=== PATIENT | male | born 1945 | race Caucasian/White ===

== ENCOUNTER → 2017-12-26 16:59 | Outpatient (CLI) | payer MEDICARE, OTHER, SELFPAY ==
--- NOTE | 2017-12-26 17:04 | CT_ITS ---
STUDY: CT MAXILLOFACIAL SINUSES REASON FOR EXAM: Male, 72 years old. PAIN BEHIND EYES, PAIN ACROSS BOTH CHEEKS, FACIAL PAIN, HAD RT CHEEK MELANOMA REMOVED TOM PROTOCOL RADIATION DOSAGE (If Supplied By Facility): CTDIvol = ( 33.06 ) mGy, DLP = ( 866.91 ) mGycm TECHNIQUE: The patient was scanned in a multi detector CT scanner. High resolution axial imaging was performed without the administration of intravenous contrast material. Sagittal and coronal images were reconstructed. Individualized dose optimization techniques were used for this CT. COMPARISON: None. FINDINGS: FRONTAL SINUSES: Normal aeration, without mucosal inflammatory disease. ETHMOIDAL SINUSES: Normal aeration, without mucosal inflammatory disease. MAXILLARY SINUSES: Normal aeration, without mucosal inflammatory disease. SPHENOIDAL SINUSES: Normal aeration, without mucosal inflammatory disease. There is patency of the bilateral maxillary infundibuli with normal uncinate processes, ethmoid bullae, and hiatus semilunaris. Normal bilateral middle turbinates. Normal bilateral inferior turbinates. Normal midline nasal septum. There is patency of the bilateral nasal airways. The visualized osseous structures are normal. The visualized bilateral orbital contents are normal. CT/Sinus/Facial Bone IMPRESSION: Normal CT examination of the maxillofacial sinuses. Electronically Signed: Miles Douglas MD at 23:31 EST , Service support ,
== END ==
PROVIDERS: Family Provider Internal Medicine; PCP Internal Medicine; Visit Provider Otolaryngology
DX: R51 Headache (principal)
CPT/HCPCS: 70486

== ENCOUNTER 2018-03-23 05:58 | Day surgery (SDC) | payer MEDICARE, OTHER, SELFPAY ==
[2018-03-15 14:00] VITALS: BP 157/89; PULSE 72; RESP 16; TEMP 36.2; O2SAT 98; BMI 27.9
[2018-03-23] VITALS (12 sets, daily range): BP systolic 98–138; BP diastolic 51–105; PULSE 52–91; RESP 16–18; TEMP 35.7–36.5; O2SAT 92–100; BMI 27.9; BMI 27.8
--- NOTE | 2018-03-23 06:11 | EKG12_ITS ---
Test Reason : PRE-OP Blood Pressure : / mmHG Vent. Rate : 067 BPM Atrial Rate : 067 BPM P-R Int : 228 ms QRS Dur : 092 ms QT Int : 404 ms P-R-T Axes : -08 025 011 degrees QTc Int : 426 ms Sinus rhythm with 1st degree A-V block Otherwise normal ECG When compared with ECG of 23-MAR-2009 07:53, MANUAL COMPARISON REQUIRED, DATA IS UNCONFIRMED Confirmed by JAZMINE VELAZCO ([id number]), newspaper editor managing JAYDE CANADA ([id number]) on 03/27/2018 4:14:11 PM Referred By: Ritchie Isidro Confirmed By:JAZMINE VELAZCO
[2018-03-23] MEDS: Cefazolin 2 GM in 0.9% Normal Saline 100 ML IV (07:00)
--- NOTE | 2018-03-23 07:30 | PROS_PTH ---
PATIENT: SHLOMO MARIA LOC: [facility] U#:[id number] AGE/SX: 72/M ROOM: RE03/23/[address]: Dr. Ritchie Isidro MD : 1945 BED: DIS: 03/24/2018 SPEC #: [id number] RECD: 03/23/18 09:50 STATUS: ABHISHEK RERussell #: [id number] KIMBERLY: 03/23/18 07:[address]: Ritchie Isidro DEPT: SURGICAL PATHOLOGY RECD BY: Truong Caraballo ENTERED: 03/23/18 10:38 SP TYPE: TURP OTHR DR: Dr. Teri Vargas DO Tissues: Prostate, NOS Procedures: Surgery Specimen Level IV HEADER OPERATION: Cysto, TUR prostate, Olympus PRE-OP DIAGNOSIS: BPH with obstruction, frequency of urination, urinary hesitation, nocturia TISSUE SUBMITTED: Prostate tissue MICROSCOPIC DIAGNOSIS Prostate tissue, TUR: Benign prostatic hyperplasia, glandular and stromal type. Focal chronic inflammation. KYLE:arslan 03/26/18 MICROSCOPIC DESCRIPTION Slides are reviewed. GROSS DESCRIPTION Received is one container labeled with the patient's name and designated prostate tissue. The specimen consists of multiple irregular fragments of pink-rodríguez, rubbery, soft tissue that in aggregate weigh 4.6 gm and measure in aggregate 4.5 x 4.5 x 0.3 cm. The entire specimen is submitted in seven cassettes. / AM:arslan 03/23/18 TC:5 [facility]: [id number]
--- NOTE | 2018-03-23 08:15 | OP.PCM_ITS ---
Report of Operation Date of Procedure: 03/23/18 Pre-Operative Diagnosis: BPH with obstructive urinary symptoms Post-Operative Diagnosis: Same Surgery/Procedure Performed:: Transurethral resection of the prostate Description of Surgical Findings:: 72-year-old male taken back to the operating room after smooth induction of general anesthesia he is placed supine on the table penis and testicles were prepped and draped in usual sterile fashion went into the urethra with a 26 [place] continuous flow resectoscope. The entire length the urethra some scar tissue in the mid part of the urethra was able to get through this some annular rings and then sphincter was normal, prostate was short in length high riding median lobe. I then switched over to the resectoscope resected the median lobe resected the right lobe of the prostate carefully resected the apical and anterior tissue pulled back into the sphincter Ellik out all the chips switched over to the noncontinuous flow 24 [place] angled finished the resection of the apical tissue and then removed all the chips obtained good hemostasis but a 22 [place] three-way catheter into the bladder on continuous bladder irrigation patient's anesthetic was reversed is taken back to PACU in good condition. Type of Anesthesia:: General Drains: 22FR 3 WAY - Admit VTE Documentation VTE Present on Admission: No VTE Mechan Device Prophylaxis: SCD's VTE Pharm Prophylaxis ordered?: No Reason prophylaxis not ordered:: Treatment Not Indicated
[2018-03-23] MEDS: 0.9% Normal Saline 1,000 ML 75 ML IV (11:10)
[2018-03-23] MEDS: Pantoprazole Sodium 40 MG Tablet PO (11:11)
[2018-03-23] MEDS: Ibuprofen 600 MG Tablet PO (11:11)
[2018-03-23] MEDS: Docusate Sodium 100 MG Capsule PO ×2 (11:11→21:27)
[2018-03-23] MEDS: Ciprofloxacin 500 MG Tablet PO ×2 (11:23→21:27)
[2018-03-23] MEDS: Acetaminophen 325 MG Tablet PO ×2 (14:47→21:30)
[2018-03-24] MEDS: 0.9% Normal Saline 1,000 ML 75 ML IV (00:30)
[2018-03-24 02:00] VITALS: BP 117/59; PULSE 60; RESP 18; TEMP 37.1; O2SAT 95; BMI 27.9
[2018-03-24] MEDS: Acetaminophen 325 MG Tablet PO (06:02)
[2018-03-24] MEDS: Multivitamins,Therapeutic Tablet 1 TABLET PO (07:46)
--- NOTE | 2018-03-24 09:27 | PCM.DC.URO ---
Discharge Diet: Light diet - advance as tolerated Discharge Activity: May Drive, May Shower Lifting Restrictions: no heavy lifting. Call your doctor if your incision/area has: Sudden Increased Bleeding Call your doctor if you observe: Fever of 101 or Higher, Inability to urinate, Uncontrolled pain Suture Line Care: Avoid Pulling/Pushing, Avoid Pinching/Bending Instructions: Transurethral Resection of the Prostate (TURP): Home Recovery Allergies/Adverse Reactions: Allergies Penicillins Allergy (Verified 03/15/18 13:23) Unknown Medications to take at Discharge Amlodipine Besylate [Norvasc] 5 mg PO DAILY 03/15/18 Amphetamine Salts 20 mg PO TID 03/15/18 Aspirin [Aspirin EC] 81 mg PO DAILY 03/15/18 Cholecalciferol (Vitamin D3) [Vitamin D3] 1,000 unit PO DAILY 03/15/18 Multivitamin [Multiple Vitamins] 1 each PO DAILY 03/15/18 Ramipril [Altace] 10 mg PO DAILY 03/15/18 Ciprofloxacin [Cipro] 500 mg PO BID #14 tab 03/24/18 The following prescriptions were given: Ciprofloxacin [Cipro] 500 mg PO BID #14 tab Primary Care Physician: Teri Vargas DO [Primary Care Provider] - Please Follow Up With: Ritchie Isidro MD When: call for a follow up appt.
[2018-03-24 09:35] VITALS: BP 167/73; PULSE 69; RESP 18; TEMP 36.6; O2SAT 96
[2018-03-24] MEDS: Pantoprazole Sodium 40 MG Tablet PO (09:57)
[2018-03-24] MEDS: amLODIPine 5 MG Tablet PO (09:57)
[2018-03-24] MEDS: Docusate Sodium 100 MG Capsule PO (09:57)
[2018-03-24] MEDS: Ramipril 10 MG Capsule PO (09:57)
[2018-03-24] MEDS: Ciprofloxacin 500 MG Tablet PO (09:57)
[2018-03-24 11:33] VITALS: BP 132/72; PULSE 78; RESP 16; TEMP 36.7; O2SAT 96
== END 2018-03-24 11:30 | disposition home or self-care (01) ==
LOC: SDC 05:58 → AC 05:59 → MS3 08:33
PROVIDERS: Family Provider Internal Medicine; PCP Internal Medicine; Visit Provider Urology
PROC: (CPT 52601; principal; 2018-03-23 07:20)
DX: N40.1 Benign prostatic hyperplasia with lower urinary tract symptoms (principal); N13.8 Other obstructive and reflux uropathy; R35.0 Frequency of micturition; R39.11 Hesitancy of micturition; R35.1 Nocturia; I10 Essential (primary) hypertension; Z85.828 Personal history of other malignant neoplasm of skin; Z87.442 Personal history of urinary calculi; Z87.891 Personal history of nicotine dependence; Z79.82 Long term (current) use of aspirin; Z79.899 Other long term (current) drug therapy
CPT/HCPCS: 52601; 88305; 93005; J7030; J7120; J2405

== ENCOUNTER → 2018-08-22 06:58 | Outpatient (CLI) | payer MEDICARE, OTHER, SELFPAY ==
[2018-08-22 07:05] LABS: Bacteria 0 SEEN /hpf (None Seen); Mucous, Urine 0 SEEN /hpf (<or=2+); Red Blood Cells-Urine 0 SEEN /hpf (0-5); Squamous Epithelial Cells - UA 0 SEEN /hpf (0-5)
[2018-08-22 10:27] LABS: Absolute Lymphocyte Count 2.41 X10^3/ul (0.83-4.51); Absolute Neutrophil Count 3.1 X10^3/uL (2.0-7.7); Basophil# 0.07 X10^3/uL; Basophil% 1.1 % (0-1); Eosinophil# 0.22 X10^3/uL; Eosinophils% 3.4 % (0-5); Hematocrit 47.9 % (40-54); Hemoglobin 15.9 g/dl (13.0-16.5); Lymphocyte # 2.41 X10^3/ul (4.0); Lymphocyte % 37.7 % (19-41); Mean Corp Hgb Conc 33.2 g/gl (32-36); Mean Corpuscular Hgb 31.7 pg (27.0-32.0); Mean Corpuscular Volume 95.6 fL (80-94); Mean Platelet Vol. 9.7 fl (6.2-12.0); Monocyte# 0.58 X10^3/uL; Monocyte% 9.1 % (0-10); Neutrophil % 48.4 % (47-70); Platelet Count 261 K/mm3 (150-450); RBC Distribution Width CV 13.2 % (11.6-14.6); RBC Distribution Width SD 46.3 fl (35.1-43.9); Red Blood Count 5.01 M/mm3 (4.6-6.2); White Blood Count 6.4 K/mm3 (4.4-11.0)
[2018-08-22 10:28] LABS: POSITIVE COUNT NO; POSITIVE DIFFERENTIAL NO; POSITIVE MORPHOLOGY NO
[2018-08-22 10:29] LABS: Color, Urine Yellow (Yellow); Glucose, Dipstick Normal (Normal); Ketone-Dipstick Negative (Negative); Leukocyte Esterase-Dipstick 500 /ul (Negative); Nitrite-Dipstick Negative (Negative); Occult Blood-Urine Negative /ul (Negative); Protein-Dipstick Negative (Negative); Urine Bilirubin Dipstick Negative (Negative); Urine Clarity Sl. Cloudy (Clear); Urine Urobilinogen Normal (Normal)
[2018-08-22 10:41] LABS: Microalbumin,Random Urine 5.8 mg/L (NO RANGE EST.); Microalbumin:Creatinine Ratio 16.3 mg/g CRE (<30 mg/g CRE); White Blood Cells 25-50 SEEN /hpf (0-5)
[2018-08-22 10:45] LABS: Vitamin D,25 Hydroxy 36.8 ng/mL (29.95-100.01)
[2018-08-22 10:46] LABS: ALB/GLOB Ratio 1.1 RATIO (0.9-2.4); AST(SGOT) 23 U/L (15-37); Alanine Aminotransfer ALT/SGPT 44 U/L (16-61); Albumin, Serum 3.6 g/dL (3.2-5.0); Alkaline Phosphatase 102 U/L (45-117); Anion Gap 7 (5-15); BUN 17 mg/dL (7-18); BUN/Creat Ratio 15.2 RATIO (10-20); Calcium,Total 8.8 mg/dL (8.5-10.1); Chloride 103 mmol/L (98-107); Creatinine, Serum 1.12 mg/dL (0.70-1.30); EST Glomerular Filtration Rate 68 mL/min (>60); Est Glom Filt Rate - Afr Amer 83 mL/min (>60); Globulin 3.4 g/dL (2.2-4.2); Glucose 87 mg/dL (74-106); Potassium 3.8 mmol/L (3.5-5.1); Sodium Level 140 mmol/L (136-145); Thyroid Stim Hormone (TSH) 1.54 uIU/mL (0.358-3.74)
[2018-08-24 12:08] LABS: CHOLESTEROL TOTAL 181 mg/dL (100-199); HDL-C 41 mg/dL (>39); HDL-P TOTAL 34.1 umol/L (>=30.5); SMALL LDL-P 858 nmol/L (<=527); TRIGLYCERIDES 193 mg/dL (0-149)
[2018-08-24 18:40] LABS: LDL SIZE 20.4 nm (>20.5); LDL-C 101 mg/dL (0-99); LDL-P 1493 nmol/L (<1000); LP-IR SCORE ** 80 (<=45)
== END ==
PROVIDERS: Family Provider Internal Medicine; PCP Internal Medicine; Referring Provider Internal Medicine; Visit Provider Internal Medicine
DX: E55.9 Vitamin D deficiency, unspecified (principal); E78.00 Pure hypercholesterolemia, unspecified; I10 Essential (primary) hypertension
CPT/HCPCS: 36415; 80053; 80061; 81001; 82043; 82306; 82570; 83704; 84443; 85025

== ENCOUNTER → 2019-01-07 16:07 | Outpatient (CLI) | payer MEDICARE, OTHER, SELFPAY ==
[2018-03-23 10:40] VITALS: BMI 27.8
--- NOTE | 2019-01-07 16:17 | VDLE_ITS ---
Reason For Study: pain RIGHT LEFT CFV is compressible, spontaneous, phasic, GSV is normal. competent and demonstrates normal CFV is compressible, spontaneous, phasic, augmentation. competent, and demonstrates normal Procedure augmentation. Exam performed in department. FV is compressible, spontaneous, phasic, The exam was diagnostic. competent and demonstrates normal A preliminary report was called and/or faxed augmentation. to Dr. Vargas. POP V is compressible, spontaneous, phasic, competent and demonstrates normal augmentation. T/P Trunk is compressible. PTV is compressible. LT PerV is compressible. Interpretation Summary Deep veins of the left lower extremity are patent and compressible segmentally. There is no evidence of left lower extremity deep vein thrombosis. Valvular competence appears intact within the proximal deep venous system on the left . The left greater saphenous vein appears patent and compressible segmentally. Ordering Physician: Teri Vargas Performed By: Breezy Yanez RVT
== END ==
PROVIDERS: Family Provider Internal Medicine; PCP Internal Medicine; Referring Provider Internal Medicine; Visit Provider Internal Medicine
DX: M79.662 Pain in left lower leg (principal)
CPT/HCPCS: 93971

== ENCOUNTER → 2019-01-09 12:59 | Outpatient (CLI) | payer MEDICARE, OTHER, SELFPAY ==
--- NOTE | 2019-01-09 13:04 | CDU_ITS ---
Reason For Study: Bilateral artery occlusion Rt. Velocities/BP Lt. Velocities/BP Prox CCA 112/20.4 cm/sec. Prox CCA 145/32.4 cm/sec. Mid CCA 121/24.4 cm/sec. Mid CCA 137/29.5 cm/sec. Dist CCA 99/17.3 cm/sec. Dist CCA 123/29.5 cm/sec. Prox ICA 76.8/21.7 cm/sec. Prox ICA 62.1/15.8 cm/sec. Mid ICA 99/32.2 cm/sec. Mid ICA 80.4/25.5 cm/sec. Dist ICA 87.4/26.9 cm/sec. Dist ICA 65.1/22.3 cm/sec. Rt. ICA/CCA = 0.88. Lt. ICA/CCA = .59. Prox ECA 103/16.5 cm/sec. Prox ECA 95.1/19.6 cm/sec. Rt. Vert. 41.2/10.6 cm/sec. Lt. Vert. 55.8/15.3 cm/sec. Right Extracranial There is intimal thickening but no significant atherosclerotic plaque noted in the right common carotid artery. There is heterogeneous, smooth atherosclerotic plaque noted in the right internal carotid artery. There is no significant atherosclerotic plaque noted in the right external carotid artery. Antegrade flow is noted in the right vertebral artery. Left Extracranial There is intimal thickening but no significant atherosclerotic plaque noted in the left common carotid artery. There is intimal thickening but no significant atherosclerotic plaque noted in the left internal carotid artery. There is no significant atherosclerotic plaque noted in the left external carotid artery. Antegrade flow is noted in the left vertebral artery. Procedure Carotid Duplex 11079. Exam performed in department. Interpretation Summary Mild (<50%) stenosis right extracranial internal carotid. No significant atherosclerotic plaque or stenosis noted in the left internal carotid artery. Flow within the vertebral arteries is antegrade bilaterally. Ordering Physician: Teri Vargas Referring Physician: Teri Vargas Performed By: Clarice Lockhart RVT and Student
== END ==
PROVIDERS: Family Provider Internal Medicine; PCP Internal Medicine; Referring Provider Internal Medicine; Visit Provider Internal Medicine
DX: I65.23 Occlusion and stenosis of bilateral carotid arteries (principal)
CPT/HCPCS: 93880

== ENCOUNTER → 2019-02-27 08:03 | Outpatient (CLI) | payer MEDICARE, OTHER, SELFPAY ==
--- NOTE | 2019-02-27 08:05 | US_ITS ---
STUDY: ABDOMINAL ULTRASOUND - RIGHT UPPER QUADRANT REASON FOR VISIT: Male, 73 years old. Epigastric pain and nausea TECHNIQUE: Ultrasound evaluation of the right upper quadrant was performed with real-time and static rivera-scale imaging. TECHNICAL QUALITY: Adequate. COMPARISON: None. FINDINGS: Liver: The liver measures 15.9 cm. There is normal echogenicity of the liver. The bile ducts are within normal limits. There is hepatic color flow. The direction of portal flow is hepatopetal. There is a 1.6 cm hyperechoic lesion in the right hepatic lobe without posterior acoustic shadowing. Gallbladder: Normal distended gallbladder. The gallbladder wall measures 2.9 mm. There is a negative sonographic Palomino's sign. There is a 4 mm polyp along the parenchymal wall. There is no pericholecystic fluid. There are no gallstones. Common Bile Duct (C.B.D.): The common bile duct measures 4.9 mm. Pancreas: Normal size of the head, body and tail of the pancreas. There is mild increased echogenicity of the pancreatic parenchyma. There is no demonstrated pancreatic mass or cyst. Right Kidney: Normal size of the right kidney. The right kidney measures 9.9 x 5.6 x 5.7 cm. Normal renal cortex. The right cortex measures 1.6 cm. There is no demonstrated renal mass or cyst. There is no right hydronephrosis. US/Abdomen Limited IMPRESSION: 1. 1.6 cm right hepatic lobe hemangioma. 2. 4 mm gallbladder polyp along the parenchymal wall. Follow-up imaging in 6 months is recommended to document stability. 3. Mild hyperechogenicity of the pancreatic parenchyma which may represent a mild pancreatitis . Electronically Signed: Solo Hou MD at 4:55 EDT Tel , Service support ,
== END ==
PROVIDERS: Family Provider Internal Medicine; PCP Internal Medicine; Referring Provider Internal Medicine; Visit Provider Internal Medicine
DX: R11.0 Nausea (principal)
CPT/HCPCS: 76705

== ENCOUNTER → 2019-03-07 | Outpatient (CLI) | payer MEDICARE, OTHER, SELFPAY ==
--- NOTE | 2019-03-07 13:01 | CT_ITS ---
STUDY: CT ABDOMEN WITH CONTRAST REASON FOR EXAM: Male, 73 years old. Hepatic hemangioma RADIATION DOSAGE (If Supplied By Facility): CTDIvol = ( 12.36 ) mGy, DLP = ( 1159.54 ) mGycm TECHNIQUE: Transaxial images were obtained post I.V. administration of 100 IV Isovue 300, and oral contrast. Sagittal and coronal images were reconstructed. Individualized dose optimization techniques were used for this CT. COMPARISON: Ultrasound 02/27/2019 FINDINGS: The visualized lung bases are unremarkable. The visualized portions of the heart are within normal limits. No hepatic hemangioma is identified by CT. Normal gallbladder and extrahepatic biliary system. Normal spleen. Normal pancreas. Normal bilateral adrenal glands. Normal right kidney. Normal left kidney. Normal visualized stomach. Normal small intestine. Normal colon. The appendix is visualized and appears normal. Normal abdominal aorta. Normal inferior vena cava. Normal retroperitoneum. Normal abdominal wall. Normal osseous structures. CT/Abdomen WITH IV Contrast IMPRESSION: No hepatic hemangioma is identified by CT. Electronically Signed: Antoine Lopez MD at 9:06 EDT Tel , Service support ,
== END | disposition home or self-care (01) ==
LOC: CT 12:59
PROVIDERS: Family Provider Internal Medicine; PCP Internal Medicine; Referring Provider Internal Medicine; Visit Provider Internal Medicine
DX: D18.03 Hemangioma of intra-abdominal structures (principal)
CPT/HCPCS: 74160; Q9967

== ENCOUNTER → 2020-03-19 14:07 | Outpatient (CLI) | payer MEDICARE, OTHER, SELFPAY ==
[2018-03-23 10:40] VITALS: BMI 27.8
== END ==
PROVIDERS: PCP Internal Medicine; Referring Provider Urology; Visit Provider Urology
DX: Z12.5 Encounter for screening for malignant neoplasm of prostate (principal)
CPT/HCPCS: 36415; 84153; G0103

== ENCOUNTER → 2020-12-07 10:33 | Outpatient (CLI) | payer MEDICARE, OTHER, SELFPAY ==
[2020-09-01 09:39] VITALS: BMI 27.8
[2020-12-07 11:25] LABS: PSA,Total- Diagnostic 5.53 ng/mL (0.0-4.0)
== END ==
PROVIDERS: PCP Internal Medicine; Referring Provider Urology; Visit Provider Urology
DX: R97.20 Elevated prostate specific antigen [PSA] (principal)
CPT/HCPCS: 36415; 84153

== ENCOUNTER → 2020-12-30 16:52 | Outpatient (CLI) | payer MEDICARE, OTHER, SELFPAY ==
[2020-09-01 09:39] VITALS: BMI 27.8
[2020-12-30 17:46] LABS: Absolute Lymphocyte Count 2.59 X10^3/uL (0.83-4.51); Absolute Neutrophil Count 3.8 X10^3/uL (2.0-7.7); Basophil# 0.08 X10^3/uL; Basophil% 1.1 % (0-1); Eosinophil# 0.11 X10^3/uL; Eosinophils% 1.5 % (0-5); Hematocrit 50.4 % (40-54); Hemoglobin 17.1 g/dL (13.0-16.5); Lymphocyte # 2.59 X10^3/ul (4.0); Lymphocyte % 35.2 % (19-41); Mean Corp Hgb Conc 33.9 g/dL (32-36); Mean Corpuscular Hgb 32.3 pg (27.0-32.0); Mean Corpuscular Volume 95.3 fL (80-94); Mean Platelet Vol. 9.4 fl (6.2-12.0); Monocyte% 10.9 % (0-10); NRBC Flagged by Analyzer 0 % (0-5); Neutrophil # 3.75 X10^3/uL (2.7-7.7); Platelet Count 288 K/mm3 (150-450); RBC Distribution Width CV 12.6 % (11.6-14.6); RBC Distribution Width SD 44.3 fl (35.1-43.9); Red Blood Count 5.29 M/mm3 (4.6-6.2); White Blood Count 7.4 K/mm3 (4.4-11.0)
[2020-12-30 18:28] LABS: ALB/GLOB Ratio 1.1 RATIO (0.9-2.4); AST(SGOT) 25 U/L (15-37); Alanine Aminotransfer ALT/SGPT 37 U/L (16-61); Albumin, Serum 3.7 g/dL (3.2-5.0); Alkaline Phosphatase 122 U/L (45-117); Anion Gap 6 (5-15); BUN 17 mg/dL (7-18); Chloride 106 mmol/L (98-107); Creatinine, Serum 1.21 mg/dL (0.70-1.30); EST Glomerular Filtration Rate 62 mL/min (>60); Est Glom Filt Rate - Afr Amer 75 mL/min (>60); Globulin 3.4 g/dL (2.2-4.2); Glucose 91 mg/dL (74-106); Potassium 3.9 mmol/L (3.5-5.1); Protein, Total 7.1 g/dL (6.4-8.2); Sodium Level 141 mmol/L (136-145)
== END ==
PROVIDERS: PCP Internal Medicine; Referring Provider Internal Medicine; Visit Provider Internal Medicine
DX: I10 Essential (primary) hypertension (principal)
CPT/HCPCS: 36415; 80053; 85025

== ENCOUNTER → 2020-12-31 | Outpatient (CLI) | payer MEDICARE, OTHER, SELFPAY ==
[2020-09-01 09:39] VITALS: BMI 27.8
--- NOTE | 2020-12-31 | PROSBIL_PTH ---
PATIENT: SHLOMO MARIA LOC: [facility] U#:[id number] AGE/SX: 75/M ROOM: RE12/31/[address]: Dr. Ritchie Isidro MD : 1945 BED: DIS: 12/31/2020 SPEC #: [id number] RECD: 12/31/20 12:44 STATUS: ABHISHEK REQ #: [id number] KIMBERLY: 12/31/20 00:[address]: Ritchie Isidro DEPT: SURGICAL PATHOLOGY RECD BY: Solo River ENTERED: 12/31/20 12:45 SP TYPE: PROST BX CODY DR: Dr. Teri Vargas DO Tissues: A - PROSTATE RIGHT B - PROSTATE RIGHT C - PROSTATE RIGHT D - PROSTATE LEFT E - PROSTATE LEFT F - PROSTATE LEFT Procedures: PROSTATE BX HEADER OPERATION: Prostate biopsy PRE-OP DIAGNOSIS: Elevated PSA TISSUE SUBMITTED: A - Right apex, B - Right mid, C - Right base, D - Left apex, E - Left mid, F - Left base MICROSCOPIC DIAGNOSIS A. Right prostate, apex, core biopsy: Prostatic tissue, negative for malignancy. Mild chronic inflammation. B. Right prostate, mid, core biopsy: Prostatic tissue, negative for malignancy. C. Right prostate, base, core biopsy: Prostatic tissue, negative for malignancy. D. Left prostate, apex, core biopsy: Prostatic tissue, negative for malignancy. Mild chronic inflammation. E. Left prostate, mid, core biopsy: Prostatic adenocarcinoma. Tilden grade: 3+3=6 Number of cores involved: 2/2 Proportion of tissue involved: ~75% Perineural invasion: Present. Greatest tumor length: 0.7 cm F. Left prostate, base, core biopsy: Prostatic adenocarcinoma. Tilden grade: 3+3=6 Number of cores involved: 1/1 Proportion of tissue involved: ~80% Perineural invasion: Present. Greatest tumor length: 0.9 cm AM:arslan 01/01/2021 COMMENT Case has been reviewed in consultation with Dr. Martínez who concurs with the above diagnosis. IDC:AM MICROSCOPIC DESCRIPTION Slides are reviewed. GROSS DESCRIPTION A - Received is one container designated prostate, right apex. The specimen consists of one elongated fragment of light rodríguez-white soft tissue measuring 1 cm in length and 0.1 cm in diameter. The specimen is totally submitted in one cassette. B - Received is one container designated prostate, right mid. The specimen consists of two elongated fragments of light rodríguez-white soft tissue each measuring 1 cm in length and 0.1 cm in diameter. The specimen is totally submitted in one cassette. C - Received is one container designated prostate, right base. The specimen consists of one elongated fragment of light rodríguez-white soft tissue measuring 1 cm in length and 0.1 cm in diameter. The specimen is totally submitted in one cassette. D - Received is one container designated prostate, left apex. The specimen consists of one elongated fragment of light rodríguez-white soft tissue measuring 1 cm in length and 0.1 cm in diameter. The specimen is totally submitted in one cassette. E - Received is one container designated prostate, left mid. The specimen consists of two elongated fragments of light rodríguez-white soft tissue each measuring 1 cm in length and 0.1 cm in diameter. The specimen is totally submitted in one cassette. F - Received is one container designated prostate, left base. The specimen consists of one elongated fragment of light rodríguez-white soft tissue measuring 1.5 cm in length and 0.1 cm in diameter. The specimen is totally submitted in one cassette. / AM:arslan 12/31/20 TC:0 CPT: G0146 ADDENDUM ADDENDUM ADDENDUM ADDENDUM ADDENDUM ADDENDUM ADDENDUM ADDENDUM ADDENDUM ADDENDUM ADDENDUM ADDENDUM ADDENDUM ADDENDUM ADDENDUM ADDENDUM ADDENDUM ADDENDUM ADDENDUM ADDENDUM ADDENDUM ADDENDUM ADDENDUM ADDENDUM ADDENDUM ADDENDUM 04/12/2021 10:36 ADDENDUM 04/12/2021 10:36 ADDENDUM 04/12/2021 10:36 ADDENDUM 04/12/2021 10:36 ADDENDUM 04/12/2021 10:36 This addendum is added to incorporate an outside pathology consultation report. The case was examined at [facility] (#[id number]) and the following diagnosis was rendered. A. Right prostate, apex, core biopsy: Benign prostatic tissue. B. Right prostate, mid, core biopsy: Benign prostatic tissue. C. Right prostate, base, core biopsy: Benign prostatic tissue. D. Left prostate, apex, core biopsy: Benign prostatic tissue. E. Left prostate, mid, core biopsy: Prostatic adenocarcinoma, Michel score 3+4=7, Grade Group 2, involving two of two cores (6?mm, 65%, 7 mm, 85%). Tilden pattern 4 comprises approximately 20% of the carcinoma. Small gland cribriform morphology is identified. F. Left prostate, base, core biopsy: Prostatic adenocarcinoma, Tilden score 3+4=7, Grade Group 2, involving one of one core (9?mm, 80%). Tilden pattern 4 comprises approximately 15% of the carcinoma. Small gland cribriform morphology is identified. Please see complete above mentioned consultation report in EMR
== END | disposition home or self-care (01) ==
LOC: LABSPEC 11:26
PROVIDERS: PCP Internal Medicine; Referring Provider Urology; Visit Provider Urology
DX: R97.20 Elevated prostate specific antigen [PSA] (principal)
CPT/HCPCS: 88305; G0416

== ENCOUNTER → 2021-01-06 06:10 | Outpatient (CLI) | payer MEDICARE, OTHER, SELFPAY ==
[2020-09-01 09:39] VITALS: BMI 27.8
--- NOTE | 2021-01-06 06:13 | ECHOCS_ITS ---
Reason For Study: RUFFIN Procedure This was a 2D Doppler, Color Flow transthoracic echocardiogram. Exam performed in department. Left Ventricle Normal LV size. Left ventricular systolic function is normal. The estimated ejection fraction is 65 %. Stage 1 diastolic dysfunction. No regional wall motion abnormalities noted. Right Ventricle Normal RV size. Normal systolic function. Atria Normal left atrium. Normal right atrium. Mitral Valve Normal mitral valve. Tricuspid Valve Normal tricuspid valve. Unable to estimate RV systolic pressure due to insufficient tricuspid regurgitant envelope. Aortic Valve Normal aortic valve. Trisinus/trileaflet aortic valve. Pulmonic Valve Normal pulmonic valve. Great Vessels Normal aortic root. The pulmonary artery is normal size. Normal inferior vena cava. Pericardium/Pleural No pericardial effusion. Medication Diluted definity 3ml given slow IV push to enhance endocardial definition. MMode/2D Measurements & Calculations LVIDd: 4.8 cm IVSd: 1.1 cm Ao root diam: 2.9 cm LVIDs: 2.6 cm LVPWd: 1.0 cm RVDd: 2.9 cm FS: 46.4 % LAV(MOD-bp): 30.4 ml LA A4 area: 15.1 cm2 LA dimension(2D): 4.2 cm LAV(MOD-bp) Indexed: 15.4 ml/m2 LAV(MOD-sp2): 22.5 ml LAV(MOD-sp4): 36.4 ml RA A4 area: 9.6 cm2 Doppler Measurements & Calculations MV E max marcelo: 51.7 cm/sec Lat Peak E' Marcelo: 10.5 cm/sec Med Peak E' Marcelo: 6.5 cm/sec MV A max marcelo: 90.2 cm/sec E/E' lat: 4.9 E/E' med: 7.9 MV E/A: 0.57 Ao V2 max: 127.6 cm/sec LV V1 max: 85.7 cm/sec PA V2 max: 135.8 cm/sec Ao max P.5 mmHg LV V1 max P.9 mmHg Ao V2 mean: 93.0 cm/sec Ao mean P.7 mmHg Ao V2 VTI: 20.4 cm Interpretation Summary Normal LV size. Left ventricular systolic function is normal. The estimated ejection fraction is 65 %. Stage 1 diastolic dysfunction. Contrast injection was performed. Ordering Physician: Teri Vargas Referring Physician: Teri Vargas Performed By: Viviana Shrestha, CARMENZA, RVT
--- NOTE | 2021-01-06 06:13 | CDU_ITS ---
Reason For Study: Carotid artery occlusion Rt. Velocities/BP Lt. Velocities/BP Prox CCA 83.9/10.8 cm/sec. Prox CCA 102.3/18.8 cm/sec. Mid CCA 96.9/17.3 cm/sec. Mid CCA 98.6/16.3 cm/sec. Dist CCA 79.9/12.1 cm/sec. Dist CCA 88.8/15.1 cm/sec. Prox ICA 55.2/12.1 cm/sec. Prox ICA 45.8/7.7 cm/sec. Mid ICA 61.7/12.1 cm/sec. Mid ICA 64.2/16.3 cm/sec. Dist ICA 54.7/12.4 cm/sec. Dist ICA 85.1/20 cm/sec. Rt. ICA/CCA = 0.74. Lt. ICA/CCA = 0.86. Prox ECA 76/9.5 cm/sec. Prox ECA 77.7/11.4 cm/sec. Rt. Vert. 37.8/8.1 cm/sec. Lt. Vert. 37.7/9.1 cm/sec. Right Extracranial There is intimal thickening but no significant atherosclerotic plaque noted in the right common carotid artery. There is heterogeneous, irregular atherosclerotic plaque noted in the right internal carotid artery. There is intimal thickening but no significant atherosclerotic plaque noted in the right external carotid artery. Antegrade flow is noted in the right vertebral artery. Left Extracranial There is intimal thickening but no significant atherosclerotic plaque noted in the left common carotid artery. There is intimal thickening but no significant atherosclerotic plaque noted in the left internal carotid artery. There is intimal thickening but no significant atherosclerotic plaque noted in the left external carotid artery. Antegrade flow is noted in the left vertebral artery. Procedure Carotid Duplex 19978. This is a Carotid Duplex examination using B-mode, color flow and specral Doppler. Exam performed in department. Interpretation Summary Mild (<50%) stenosis right extracranial internal carotid. No significant atherosclerotic plaque or stenosis noted in the left internal carotid artery. Flow within the vertebral arteries is antegrade bilaterally. Ordering Physician: Teri Vargas Referring Physician: Teri Vargas Performed By: Amalia Kent RVT
--- NOTE | 2021-01-06 13:18 | STRESSREP ---
Stress Test Report Exercise myocardial perfusion stress test. 75-year-old man with a history of chest pain. Stress protocol: Resting EKG demonstrates normal sinus rhythm with a rate of 74 bpm normal intervals are noted resting blood pressure is 122/74 mmHg. The patient exercised according to regular Cj protocol for a total duration of 9 minutes and 30 seconds. The maximum heart rate attained was 133 bpm which was 91% of maximum predicted heart rate the maximum workload was 10.9 metabolic equivalents. At rest there were no ST or T wave changes noted to suggest ischemia at peak exercise upsloping ST changes only were noted with no meet the criteria for ischemia. The resting blood pressure was 122/74 with a peak blood pressure 174/62 mmHg. Rate-pressure product was 21,400. Myocardial perfusion protocol. 9.4 mCi of technetium 99m sestamibi was injected at rest. The patient exercised according to regular Cj protocol for total duration of 9 minutes and 30 seconds. At peak exercise 29.9 mCi of technetium 99m sestamibi was injected stress images were obtained stress and rest images were reconstructed and compared in the short axis vertical long horizontal long axis. Gated images were also obtained Perfusion SPECT analysis: Review of the stress images demonstrate normal uptake of tracer noted in all areas of myocardium the resting images similarly demonstrate normal uptake of tracer noted in all areas of the myocardium. No areas of reversibility are noted suggest ischemia no previous infarct is noted. Gated SPECT analysis: The gated ejection fraction is 77%. Conclusion: Normal exercise myocardial perfusion stress test at a high workload. Preserved ejection fraction.
== END ==
PROVIDERS: PCP Internal Medicine; Referring Provider Internal Medicine; Visit Provider Internal Medicine
DX: I65.23 Occlusion and stenosis of bilateral carotid arteries (principal); R06.09 Other forms of dyspnea; R68.89 Other general symptoms and signs
CPT/HCPCS: 78452; 93017; 93306; 93880; A9500; Q9957; A4216; C8929

== ENCOUNTER → 2021-01-12 10:45 | Outpatient (CLI) | payer MEDICARE, OTHER, SELFPAY ==
[2020-09-01 09:39] VITALS: BMI 27.8
[2021-01-12 12:23] LABS: Absolute Lymphocyte Count 2.68 X10^3/uL (0.83-4.51); Basophil# 0.07 X10^3/uL; Basophil% 1.1 % (0-1); Eosinophils% 1.5 % (0-5); Hematocrit 52.7 % (40-54); Hemoglobin 17.6 g/dL (13.0-16.5); Lymphocyte # 2.68 X10^3/ul (4.0); Lymphocyte % 41.2 % (19-41); Mean Corp Hgb Conc 33.4 g/dL (32-36); Mean Corpuscular Hgb 31.2 pg (27.0-32.0); Mean Corpuscular Volume 93.4 fL (80-94); Mean Platelet Vol. 9.6 fl (6.2-12.0); Monocyte# 0.65 X10^3/uL; NRBC Flagged by Analyzer 0 % (0-5); Neutrophil # 2.97 X10^3/uL (2.7-7.7); Neutrophil % 45.7 % (47-70); Platelet Count 308 K/mm3 (150-450); RBC Distribution Width CV 12.2 % (11.6-14.6); RBC Distribution Width SD 42.3 fl (35.1-43.9); Red Blood Count 5.64 M/mm3 (4.6-6.2); White Blood Count 6.5 K/mm3 (4.4-11.0)
[2021-01-12 12:46] LABS: ALB/GLOB Ratio 1.1 RATIO (0.9-2.4); AST(SGOT) 22 U/L (15-37); Alanine Aminotransfer ALT/SGPT 34 U/L (16-61); Albumin, Serum 3.8 g/dL (3.2-5.0); Alkaline Phosphatase 115 U/L (45-117); Anion Gap 2 (5-15); BUN 20 mg/dL (7-18); BUN/Creat Ratio 15.6 RATIO (10-20); Calcium,Total 9.3 mg/dL (8.5-10.1); Chloride 101 mmol/L (98-107); Creatinine, Serum 1.28 mg/dL (0.70-1.30); EST Glomerular Filtration Rate 58 mL/min (>60); Est Glom Filt Rate - Afr Amer 70 mL/min (>60); Globulin 3.4 g/dL (2.2-4.2); Glucose 102 mg/dL (74-106); Potassium 3.4 mmol/L (3.5-5.1); Protein, Total 7.2 g/dL (6.4-8.2); Sodium Level 137 mmol/L (136-145)
== END ==
PROVIDERS: PCP Internal Medicine; Referring Provider Internal Medicine; Visit Provider Internal Medicine
DX: I10 Essential (primary) hypertension (principal)
CPT/HCPCS: 36415; 80053; 85025

== ENCOUNTER → 2021-03-16 15:45 | Outpatient (CLI) | payer MEDICARE, OTHER, SELFPAY ==
[2020-09-01 09:39] VITALS: BMI 27.8
[2021-03-16 18:44] LABS: PSA,Total- Diagnostic 3.87 ng/mL (0.0-4.0)
== END ==
PROVIDERS: PCP Internal Medicine; Referring Provider Urology; Visit Provider Urology
DX: C61 Malignant neoplasm of prostate (principal)
CPT/HCPCS: 36415; 84153

== ENCOUNTER → 2021-09-22 16:16 | Outpatient (CLI) | payer MEDICARE, OTHER, SELFPAY ==
--- NOTE | 2021-09-22 16:17 | MRI_ITS ---
STUDY: MRI LUMBAR SPINE WITHOUT CONTRAST REASON FOR EXAM: Male, 76 years old. pain f/u abnormal xray l4/l5 spondylosthesis TECHNIQUE: Standardized fat and water weighted pulse sequences were obtained in the sagittal and axial planes. COMPARISON: 09/06/2021 x-ray FINDINGS: Normal lumbar lordosis. There is no substantial scoliosis. Normal conus medullaris that terminates at the L1. L1-2: There is minimal disc space narrowing and endplate spondylosis. There is no significant disc herniation, central canal or foraminal stenosis. L2-3: There is minimal disc space narrowing and endplates spondylosis. Mild disc bulge and facet arthropathy without significant central canal stenosis. Mild right and mild left foraminal stenosis. L3-4: There is mild disc space narrowing and endplates spondylosis. Mild disc bulge and mild foraminal arthropathy with mild central canal stenosis. Mild right and mild left foraminal stenosis. L4-5: There is minimal disc space narrowing and endplates spondylosis. Severe facet arthropathy with grade 1 anterolisthesis and disc uncovering with severe central canal stenosis. Mild right and moderate left foraminal stenosis. L5-S1: There is mild disc space narrowing and endplates spondylosis mild disc bulge and moderate facet arthropathy without significant central canal or foraminal stenosis. Normal visualized sacral ala. MRI/Spine Lumbar (Routine) IMPRESSION: L4/L5: Facet arthropathy with grade 1 anterolisthesis and severe central canal stenosis. Moderate left foraminal stenosis. Electronically Signed: Efraín Gasca MD at 15:47 EDT Tel , Service support ,
== END ==
PROVIDERS: PCP Internal Medicine; Visit Provider Orthopaedic Surgery
DX: M43.16 Spondylolisthesis, lumbar region (principal); M48.061 Spinal stenosis, lumbar region without neurogenic claudication
CPT/HCPCS: 72148

== ENCOUNTER 2023-06-05 04:57 | Observation (INO) | payer MEDICARE, OTHER, SELFPAY ==
[2023-06-05] VITALS (11 sets, daily range): BP systolic 119–169; BP diastolic 49–78; PULSE 55–87; RESP 14–18; TEMP 35.8–36.9; O2SAT 93–100; BMI 26.6; BMI 26.2
--- NOTE | 2023-06-05 | GALL_PTH ---
PATIENT: SHLOMO MARIA LOC: U U#:[id number] AGE/SX: 77/M ROOM: [facility] RE06/05/[address]: Dr. Jose Duran MD : 1945 BED: 1 DIS: 06/06/2023 SPEC #: [id number] RECD: 06/05/23 16:27 STATUS: ABHISHEK RAMAN #: [id number] KIMBERLY: 06/05/23 00:[address]: Jose Duran DEPT: SURGICAL PATHOLOGY RECD BY: [place] ENTERED: 06/06/23 08:45 SP TYPE: JOZEF ROSS DR: Dr. Cecile Rhodes MD Tissues: Gallbladder, NOS Procedures: Surgery Specimen Level III HEADER OPERATION: Laparoscopic cholecystectomy with IOC PRE-OP DIAGNOSIS: Acute cholecystitis TISSUE SUBMITTED: Gallbladder MICROSCOPIC DIAGNOSIS Gallbladder, cholecystectomy: Cholesterolosis, chronic cholecystitis and cholelithiasis. AM:am 06/07/23 MICROSCOPIC DESCRIPTION Slides are reviewed. GROSS DESCRIPTION Received is one container labeled with the patient's name and designated gallbladder. The specimen consists of a gallbladder measuring 8.0 cm in length and up to 3.5cm in diameter. The external surface is pink-rodríguez, smooth and glistening for the most part. Focally it is granular, hemorrhagic and contains cautery artifact. The gallbladder contains green, yellow mucoid bile and multiple yellow orange mulberry stones measuring in aggregate 4 x 3 x 1.0 cm and 0.1 to 0.5 cm in greatest dimension. The mucosa is bile-stained and without any mass lesions. Mucosa also show the yellow orange streaks consistent with Cholesterolosis. The gallbladder wall measures up to 0.5 cm in thickness. Focal areas show increased amount of subserosal fat. Ice Maker sections from the gallbladder and the cystic duct are submitted in one cassette. / KYLE:nargis TC:3 CPT: 38738
--- NOTE | 2023-06-05 05:20 | CT_ITS ---
EXAM: CT ABDOMEN AND PELVIS WITH INTRAVENOUS CONTRAST CLINICAL INDICATION: abd pain TECHNIQUE: Helically acquired images were obtained of the abdomen and pelvis with intravenous contrast. This CT exam was performed using one or more of the following dose reduction techniques: automated exposure control, adjustment of the mA and/or kV according to patient size, and/or use of iterative reconstruction technique. CONTRAST: IV 100mL Isovue-370 RADIATION DOSE: Total DLP: 1162.20 mGy-cm. COMPARISON: Abdominal CT of 03/07/2019. FINDINGS: LOWER THORAX: Dependent atelectasis is incidentally noted at the lung bases. Mild coronary artery calcification is present. No significant pericardial effusion. ABDOMEN: LIVER: Unremarkable. Homogeneous. No focal mass. GALLBLADDER AND BILE DUCTS: Gallbladder is now mildly distended measuring 9.2 x 3.9 cm in diameter. No calcified gallstones, wall thickening or pericholecystic stranding. Intrahepatic bile ducts are slightly more prominent on the prior study but the common bile duct remains normal in caliber. No choledocholithiasis is identified. PANCREAS: Pancreas is atrophic. No findings of acute pancreatitis. No focal cystic or solid mass. SPLEEN: Unremarkable. Normal size without focal cystic or solid mass. ADRENALS: Unremarkable. No nodules. KIDNEYS AND URETERS: Normal size kidneys with symmetric nephrograms. Nonspecific perirenal stranding. No hydronephrosis or obstructing ureteral stone. STOMACH AND BOWEL: Stomach is decompressed. Wall of the gastric antrum is mildly thickened, most likely due to the lack of distention with gastritis felt less likely. No periduodenal inflammatory changes or distended small bowel loops. Colon is elongated and redundant. A few uncomplicated diverticula project from the descending colon. No findings of diverticulitis, colitis or small bowel obstruction. PELVIS: APPENDIX: Retrocecal appendix. No findings of acute appendicitis. BLADDER: Unremarkable. REPRODUCTIVE: Absent prostate gland. ABDOMEN and PELVIS: INTRAPERITONEAL SPACE: Unremarkable. No ascites or other fluid collection. No free air. BONES/JOINTS: Pedicle screws and rods in place from L4 to L5, with titanium cage in place within the L4/5 disc space. T10/11 disc space is partially fused. T11/12 disc space shows degenerative disc space narrowing with vacuum disc phenomenon and marginal osteophytes. Lumbar facet arthritis is present. Slight anterolisthesis of L4 on L5. No suspicious lytic or blastic osseous abnormality identified. SOFT TISSUES: Small fat-filled inguinal hernias. VASCULATURE: Calcific abdominal aorta and its branches. No AAA. SMA and NIURKA enhance normally. Abdominal aorta is non-dilated. LYMPH NODES: Unremarkable. No enlarged lymph nodes. CT/Abdomen/Pelvis W IV Cont ONLY IMPRESSION: Mild gallbladder distention. No calcified gallstones or pericholecystic stranding identified. Correlation with ultrasound may be of benefit if biliary pathology is suspected clinically. Mild thickening of the gastric antral wall due to limited distention or possibly due to a mild gastritis/antritis. Normal appendix. Mild colonic diverticulosis without evidence for acute diverticulitis. No renal or ureteral stones. Electronically Signed: Gunnar Ruiz MD at 6:21 EDT ,
--- NOTE | 2023-06-05 05:20 | EKG12_ITS ---
Test Reason : ABD PAIN Blood Pressure : / mmHG Vent. Rate : 055 BPM Atrial Rate : 055 BPM P-R Int : 238 ms QRS Dur : 098 ms QT Int : 456 ms P-R-T Axes : 009 057 045 degrees QTc Int : 436 ms Sinus bradycardia with 1st degree A-V block Otherwise normal ECG Confirmed by GISELA COOK, ANAM ([id number]), medical editor ANTONIO HYATT ([id number]) on 06/06/2023 11:43:21 AM Referred By: Confirmed By:ANAM HIGGINS MD
[2023-06-05 05:30] LABS: Absolute Lymphocyte Count 3.15 X10^3/uL (0.83-4.51); Absolute Neutrophil Count 5.8 X10^3/uL (2.0-7.7); Basophil# 0.08 X10^3/uL; Basophil% 0.8 % (0-1); Eosinophil# 0.37 X10^3/uL; Eosinophils% 3.6 % (0-5); Hematocrit 48.4 % (40-54); Hemoglobin 16.5 g/dL (13.0-16.5); Lymphocyte # 3.15 X10^3/ul (0.83-4.51); Lymphocyte % 30.6 % (19-41); Mean Corp Hgb Conc 34.1 g/dL (32-36); Mean Corpuscular Volume 93.8 fL (80-94); Mean Platelet Vol. 9.4 fl (6.2-12.0); Monocyte# 0.88 X10^3/uL; Monocyte% 8.6 % (0-10); NRBC Flagged by Analyzer 0 % (0-5); Neutrophil # 5.76 X10^3/uL (2.7-7.7); Platelet Count 271 K/mm3 (150-450); RBC Distribution Width CV 12.7 % (11.6-14.6); Red Blood Count 5.16 M/mm3 (4.6-6.2); White Blood Count 10.3 K/mm3 (4.4-11.0)
[2023-06-05] MEDS: Ondansetron 4 MG/2 ML Vial IV (05:33)
[2023-06-05] MEDS: 0.9% Normal Saline 1,000 ML 999 ML IV (05:33)
[2023-06-05] MEDS: Morphine 4 MG/ML Syringe IV ×2 (05:33→09:26)
[2023-06-05 05:50] LABS: AST(SGOT) 26 U/L (15-37); Alanine Aminotransfer ALT/SGPT 34 U/L (16-61); Albumin, Serum 3.7 g/dL (3.2-5.0); Alkaline Phosphatase 101 U/L (45-117); Anion Gap 3 (5-15); BUN 23 mg/dL (7-18); BUN/Creat Ratio 19.2 RATIO (10-20); Bilirubin, Direct 0.17 mg/dL (0.00-0.30); Chloride 107 mmol/L (98-107); EST Glomerular Filtration Rate 62 mL/min (>60); Est Glom Filt Rate - Afr Amer 75 mL/min (>60); Estimated Creatinine Clearance 51.55 ml/min; Globulin 3.6 g/dL (2.2-4.2); Glucose 110 mg/dL (74-106); Lipase 56 U/L (13-75); Potassium 3.7 mmol/L (3.5-5.1); Protein, Total 7.3 g/dL (6.4-8.2); Sodium Level 139 mmol/L (136-145); Troponin-I HS 8 pg/mL (3.0-78.0)
--- NOTE | 2023-06-05 06:33 | US_ITS ---
EXAM: US ABDOMEN LIMITED, RIGHT UPPER QUADRANT CLINICAL INDICATION: abd pain TECHNIQUE: Real-time ultrasound of the right upper quadrant with image documentation. COMPARISON: No relevant prior studies available. FINDINGS: LIVER: Normal. There is normal echotexture. No focal hepatic lesion. No intrahepatic biliary ductal dilation. GALLBLADDER: Gravel like stones as well as sludge noted within the gallbladder. No gallbladder wall thickening is demonstrated. No pericholecystic fluid. Negative sonographic Palomino''s sign. COMMON BILE DUCT: Unremarkable as visualized. The proximal common bile duct is normal size. PANCREAS: Unremarkable as visualized. No focal abnormality is demonstrated in the pancreas. No pancreatic ductal dilatation. RIGHT KIDNEY: Normal. There is no hydronephrosis. No shadowing calculus. No focal lesion or perinephric collection is demonstrated. US/Gallbladder IMPRESSION: Cholelithiasis. Electronically Signed: Howie Sahni MD at 8:14 EDT ,
--- NOTE | 2023-06-05 07:26 | EX.ED.DYSGE1 ---
HPI History of Present Illness Chief Complaint: Abd Pain Informant: patient and spouse/S.O. Narrative Narrative: Patient is a 77-year-old male with past medical history of hypertension GERD and spinal stenosis. Patient states he awoke around 1 in the morning with pain in the mid to upper abdomen with sense of mild nausea. He states he tried to make himself throw up but was unsuccessful and there is no improvement of the pain either. He states that there is been no loose stool diarrhea or constipation he denies any dysuria and he denies any recent trauma fevers or chills. He states however the pain has been persistent and secondary to this comes in for evaluation [facility] Medical History Atypical nevus HTN (hypertension) Hx of melanoma of skin Prostate cancer Renal calculi Home Medications amlodipine 5 mg tablet 5 mg PO DAILY 03/15/18 [History Last Taken 06/04/23] amphetamine 1.25 mg/mL oral 24 hr extended-release suspension 3.1 mg PO QAM 08/23/20 [History Last Taken Unknown] ramipril 10 mg capsule 10 mg PO DAILY 09/01/20 [History Last Taken Unknown] omeprazole 20 mg capsule,delayed release 40 mg PO DAILY 09/06/21 [History Last Taken 06/05/23] polyethylene glycol 3350 17 gram/dose oral powder (Miralax) 17 g PO DAILY 09/06/21 [History Last Taken Unknown] tadalafil 5 mg tablet ea PO 09/06/21 [History Last Taken 06/04/23] hydrocodone-acetaminophen 5-325mg 5mg-325mg 1 tab PO Q6H PRN PRN Pain 3 days #12 TABLETS 06/05/23 [Rx Last Taken Unknown] ondansetron 4 mg disintegrating tablet 4 mg PO TID PRN nausea and vomiting #21 tabs 06/05/23 [Rx Last Taken Unknown] Allergy/AdvReac Type Severity Reaction Status Date / Time Penicillins Allergy Itching Verified 06/05/23 05:03 Surgical History (Updated 09/06/21 @ 11:17 by Breonna Diane) H/O prostatectomy S/P TURP Social History (Updated 09/01/20 @ 11:[address] Ted Mancini DO) Smoking Status: Former smoker ROS ROS ED Constitutional Constitutional ED: Denies chills or fever(s) ENT ENT ED: Denies sore throat Cardiovascular Cardiovascular: Denies chest pain Respiratory/Chest Respiratory/Chest: Denies cough or dyspnea Gastrointestinal Gastrointestinal: Reports abdominal pain and nausea; Denies diarrhea or vomiting Genitourinary Genitourinary ED: Denies dysuria or hematuria Musculoskeletal Musculoskeletal: Denies myalgias Integumentary Denies rash Neurologic Neurologic: Denies headache(s) Hematologic/Lymphatic Hematologic/Lymphatic: Denies easy bleeding or easy bruising EXAM Physical Exam Const Vital Signs: 06/05/23 04:58 06/05/23 05:01 Temperature 96.5 F L 96.5 F L Temperature Source Oral Oral Pulse Rate 55 L 57 L Respiratory Rate 16 16 Blood Pressure 169/77 H 169/77 H Blood Pressure Mean 107 107 Pulse Ox 97 98 Oxygen Delivery Method Room Air Positive well nourished and well developed General Appearance ED: well developed HEENT Reports moist mucous membranes Eyes PERRL and EOMs intact bilaterally General Eye ED: Negative for scleral icterus Neck supple Resp normal respiratory effort and clear to auscultation bilaterally Cardio regular rate and regular rhythm Rate: other Other Details: Radial pulses are plus 2 out of 4 bilaterally are equal and symmetric. Carotid pulses are equal and symmetric as well GI non-distended GI Narrative: Abdomen is soft and nondistended with normal active bowel sounds. Patient has pain with palpation in the right upper quadrant with positive Palomino sign. No pulsatile mass. No rigidity noted Auscultation: normoactive bowel sounds Palpation: soft Back/Spine no CVA tenderness Extremity normal to inspection Neuro oriented x3, CN's II-XII intact bilaterally and no sensory deficits noted Sensorium / Orientation: alert Motor Exam: strength 5/5 throughout Psych mental status grossly normal Skin no rashes or lesions noted General Skin Exam: Negative for jaundice MDM MDM MDM Narrative Medical decision making narrative: Patient presented to the ER hypertensive otherwise with stable vitals. Pain was present in the right upper quadrant with positive Palomino sign concerning for biliary colic versus cholangitis. Differential diagnosis also includes pancreatitis or potential acute coronary syndrome. Secondary to this basic blood work was obtained with CT scan. Labs revealed no clinically significant findings but CAT scan did question biliary distention and recommended correlation with ultrasound. Ultrasound showed gallstones without obvious acute cholecystitis based on the patient's sudden onset of symptoms and abnormal ultrasound General surgery was consulted. General surgery evaluated the patient and wish to admit him at this time to perform a cholecystectomy. This plan of care was discussed with the patient he is agreeable to History & Record Review Discussion w/independent historian: Patient and Significant other Lab Data Attestation: I reviewed the patient's lab results. Labs: Laboratory Results - last 24 hr 06/05/23 06/05/23 05:04 05:30 WBC 10.3 RBC 5.16 Hgb 16.5 Hct 48.4 MCV 93.8 MCH 32.0 MCHC 34.1 RDW Std Deviation 44.0 H RDW Coeff of Cass 12.7 Plt Count 271 MPV 9.4 Immature Gran % (Auto) 0.400 Neut % (Auto) 56.0 Lymph % (Auto) 30.6 Cobb % (Auto) 8.6 Eos % (Auto) 3.6 Baso % (Auto) 0.8 Absolute Neuts (auto) 5.8 Absolute Lymphs (auto) 3.15 Nucleated RBC % 0 Sodium 139 Potassium 3.7 Chloride 107 Carbon Dioxide 29.0 Anion Gap 3 L BUN 23 H Creatinine 1.20 Estim Creat Clear Calc 51.55 Est GFR (MDRD) Af Amer 75 Est GFR (MDRD) Non-Af 62 BUN/Creatinine Ratio 19.2 Glucose 110 H Lactic Acid 1.0 Calcium 9.0 Total Bilirubin 0.40 Direct Bilirubin 0.17 AST 26 ALT 34 Alkaline Phosphatase 101 Troponin I High Sens 8 Total Protein 7.3 Albumin 3.7 Globulin 3.6 Lipase 56 Radiography Diagnostic Testing: Clinical Impression(s) from Imaging Studies Abdomen/Pelvis CT 06/05/23 05:20 IMPRESSION: Mild gallbladder distention. No calcified gallstones or pericholecystic stranding identified. Correlation with ultrasound may be of benefit if biliary pathology is suspected clinically. Mild thickening of the gastric antral wall due to limited distention or possibly due to a mild gastritis/antritis. Normal appendix. Mild colonic diverticulosis without evidence for acute diverticulitis. No renal or ureteral stones. Electronically Signed: Gunnar Ruiz MD at 6:21 EDT , Gallbladder Ultrasound 06/05/23 06:33 IMPRESSION: Cholelithiasis. Electronically Signed: Howie Sahni MD at 8:14 EDT , Discharge Plan Triage Chief Complaint: Abd Pain ED Provider: Tai Garibay Dx/Rx/DC Orders Clinical Impression: Cholelithiasis, Biliary colic, Hypertension Instructions: Gallstones Dc, ED Gallstones with Biliary Colic Prescriptions: New hydrocodone-acetaminophen 5-325 mg tablet 1 tab PO Q6H PRN PRN (Reason: Pain) 3 Days Qty: 12 0RF ondansetron 4 mg tablet,disintegrating 4 mg PO TID PRN (Reason: nausea and vomiting) Qty: 21 0RF No Action amphetamine 1.25 mg/mL suspen, IR - ER, biphasic 24hr 3.1 mg PO QAM ramipril 10 mg capsule 10 mg PO DAILY polyethylene glycol 3350 [Miralax] 17 gram/dose powder 17 g PO DAILY omeprazole 20 mg capsule,delayed release(DR/EC) 40 mg PO DAILY Patient Comments: TAKE 1 CAPSULE BY MOUTH ONCE DAILY 30 MINUTES BEFORE BREAKFAST tadalafil 5 mg tablet PO Patient Comments: TAKE 1 TABLET BY MOUTH DAILY amlodipine 5 MG tablet 5 mg PO DAILY Primary Care Provider: Cecile Rhodes Referrals: Jose Duran MD [Med Staff - Active Staff] - Cecile Rhodes MD [Primary Care Provider] - Disposition Disposition: Acute Care Hospital [facility]
--- NOTE | 2023-06-05 09:11 | PCM.HP.STD ---
HPI - General HPI Narrative SHLOMO MARIA, is a 77 M who presents with upper abdominal pain. The patient reports that he woke up in the middle the night feeling like he needed to vomit to feel better but he did not. He describes the pain is epigastric and some in the right upper quadrant. He denies any nausea at this time. He denies fevers or chills. [facility] Medical History Atypical nevus HTN (hypertension) Hx of melanoma of skin Prostate cancer Renal calculi Home Medications amlodipine 5 mg tablet 5 mg PO DAILY 03/15/18 [History Last Taken 06/04/23] amphetamine 1.25 mg/mL oral 24 hr extended-release suspension 3.1 mg PO QAM 08/23/20 [History Last Taken Unknown] ramipril 10 mg capsule 10 mg PO DAILY 09/01/20 [History Last Taken Unknown] omeprazole 20 mg capsule,delayed release 40 mg PO DAILY 09/06/21 [History Last Taken 06/05/23] polyethylene glycol 3350 17 gram/dose oral powder (Miralax) 17 g PO DAILY 09/06/21 [History Last Taken Unknown] tadalafil 5 mg tablet ea PO 09/06/21 [History Last Taken 06/04/23] hydrocodone-acetaminophen 5-325mg 5mg-325mg 1 tab PO Q6H PRN PRN Pain 3 days #12 TABLETS 06/05/23 [Rx Last Taken Unknown] ondansetron 4 mg disintegrating tablet 4 mg PO TID PRN nausea and vomiting #21 tabs 06/05/23 [Rx Last Taken Unknown] Allergy/AdvReac Type Severity Reaction Status Date / Time Penicillins Allergy Itching Verified 06/05/23 05:03 Surgical History (Updated 09/06/21 @ 11:17 by Breonna Diane) H/O prostatectomy S/P TURP Social History (Updated 09/01/20 @ 11:[address] Ted Mancini DO) Smoking Status: Former smoker ROS Constitutional Constitutional: Denies anorexia, chills or fatigue Eyes Eyes: Denies blurry vision ENT HEENT: Denies abnormal hearing Cardiovascular Cardiovascular: Denies chest pain Respiratory/Chest Respiratory/Chest: Denies cough or dyspnea Gastrointestinal Gastrointestinal: Reports abdominal pain; Denies coffee ground emesis, nausea or vomiting Genitourinary Genitourinary: Denies change in urinary stream or difficulty urinating Musculoskeletal Musculoskeletal: Denies abnormal gait or back pain Integumentary Integumentary: Denies jaundice Neurologic Neurologic: Denies abnormal gait Psychiatric Psychiatric: Denies anxiety Vital Signs Vital Signs Vital Signs: 06/05/23 04:58 06/05/23 05:01 06/05/23 08:51 Temperature 96.5 F L 96.5 F L 98 F Temperature Source Oral Oral Temporal Pulse Rate 55 L 57 L 59 L Respiratory Rate 16 16 14 Blood Pressure 169/77 H 169/77 H 150/72 H Blood Pressure Mean 107 107 98 Pulse Ox 97 98 100 Oxygen Delivery Method Room Air Room Air 06/05/23 08:51 Temperature Temperature Source Pulse Rate 59 L Respiratory Rate 14 Blood Pressure 150/72 H Blood Pressure Mean 98 Pulse Ox 100 Oxygen Delivery Method Room Air Weight Weight: 180 lb 8 oz Body Mass Index (BMI) 26.6 Physical Exam Const oriented x3 Resp normal respiratory effort GI soft to palpation Palpation: tender RUQ Extremity normal to inspection Results Lab / Micro Data 06/05/23 05:04 06/05/23 05:04 Labs: Laboratory Results - last 24 hr 06/05/23 05:04: WBC 10.3, RBC 5.16, Hgb 16.5, Hct 48.4, MCV 93.8, MCH 32.0, MCHC 34.1, RDW Std Deviation 44.0 H, RDW Coeff of Cass 12.7, Plt Count 271, MPV 9.4, Immature Gran % (Auto) 0.400, Neut % (Auto) 56.0, Lymph % (Auto) 30.6, Johnston % (Auto) 8.6, Eos % (Auto) 3.6, Baso % (Auto) 0.8, Absolute Neuts (auto) 5.8, Absolute Lymphs (auto) 3.15, Nucleated RBC % 0, Sodium 139, Potassium 3.7, Chloride 107, Carbon Dioxide 29.0, Anion Gap 3 L, BUN 23 H, Creatinine 1.20, Estim Creat Clear Calc 51.55, Est GFR (MDRD) Af Amer 75, Est GFR (MDRD) Non-Af 62, BUN/Creatinine Ratio 19.2, Glucose 110 H, Calcium 9.0, Total Bilirubin 0.40, Direct Bilirubin 0.17, AST 26, ALT 34, Alkaline Phosphatase 101, Troponin I High Sens 8, Total Protein 7.3, Albumin 3.7, Globulin 3.6, Lipase 56 06/05/23 05:30: Lactic Acid 1.0 Radiology Impression Abdomen/Pelvis CT 06/05/23 05:20 IMPRESSION: Mild gallbladder distention. No calcified gallstones or pericholecystic stranding identified. Correlation with ultrasound may be of benefit if biliary pathology is suspected clinically. Mild thickening of the gastric antral wall due to limited distention or possibly due to a mild gastritis/antritis. Normal appendix. Mild colonic diverticulosis without evidence for acute diverticulitis. No renal or ureteral stones. Electronically Signed: Gunnar Ruiz MD at 6:21 EDT , Gallbladder Ultrasound 06/05/23 06:33 IMPRESSION: Cholelithiasis. Electronically Signed: Howie Sahni MD at 8:14 EDT , Assessment & Plan Assessment/Plan (1) Acute cholecystitis: PLAN: The patient presents with epigastric and right upper quadrant pain which started suddenly in the middle the night. ultrasound did reveal several gravel-like stones and sludge in the gallbladder. Patient reports that his pain did improve with the pain medication. He denies fevers or chills. I recommended laparoscopic cholecystectomy to the patient. I discussed the procedure in detail with the patient. I discussed the risks, benefits, and alternatives of the procedure. I discussed the risks including but not limited to bleeding, infection, injury to surrounding organs such as the liver, bile duct, bowels. I did discuss the possibility of having to convert to an open procedure as well as the possibility that if any injuries occurred this may necessitate further surgery at a tertiary care center. Jose Duran MD Pager: [facility] [address] [place] [address], [address] [place] [address] Office:
[2023-06-05] MEDS: metroNIDAZOLE 500 MG/100 ML BAG 100 MG IV (11:19)
[2023-06-05] MEDS: 0.9% Normal Saline 1,000 ML 100 ML IV (11:19)
[2023-06-05] MEDS: Ciprofloxacin 400 MG/200 ML BAG 200 MG IV (11:19)
--- NOTE | 2023-06-05 14:19 | RAD_ITS ---
STUDY: INTRAOPERATIVE CHOLANGIOGRAM. REASON FOR EXAM: Male, 77 years old. lap fausto with IOC FLUOROSCOPY TIME (if supplied): ( 29 seconds ) minutes/seconds. 9.53 mGy TECHNIQUE: An intraoperative cholangiogram was performed by the surgeon. Imaging was submitted. COMPARISON: None. FINDINGS: The intra and extrahepatic biliary ducts are unremarkable. There is free flow of contrast into the duodenum. RAD/Cholangiogram/ O R,Initial IMPRESSION: Unremarkable intraoperative cholangiogram. Electronically Signed: Quintin Ramirez MD at 15:50 EDT ,
[2023-06-05] MEDS: Bupivacaine 0.25% 30 ML Vial (14:45)
--- NOTE | 2023-06-05 14:53 | PCM.OPRPT ---
Report of Operation Date of Procedure: 06/05/23 Pre-Operative Diagnosis: Acute cholecystitis Post-Operative Diagnosis: Acute cholecystitis Surgery/Procedure Performed:: Laparoscopic cholecystectomy with cholangiogram Description of Surgical Findings:: Inflamed gallbladder. Stone in the cystic duct. Type of Anesthesia: General/Regional Specimen's removed: Gallbladder Estimated Blood Loss (mL): 20 Description of Procedure: After obtaining informed consent patient was brought back to the operating room. General anesthesia was induced. The abdomen was prepped and draped in usual sterile fashion. A small midline incision was made superior to the umbilicus and deepened to the level of fascia. The fascia was elevated and incised. Next the peritoneum was elevated and incised in the same fashion. Finger sweep was performed and the Mendez trocar was placed into the abdomen. The balloon was inflated. The abdomen was inflated to 15 mmHg. Next a camera was introduced into the abdomen and the abdomen was inspected. Next under direct visualization three 5-mm ports were placed one subxiphoid and 2 subcostal. Next the gallbladder was elevated and retracted toward the right shoulder. The peritoneum was stripped from the gallbladder. The infundibulum was located and retracted laterally. Next the triangle of Calot was dissected and the cystic duct and cystic artery were identified. Cholangiograms were performed. The Warren clamp was used to clamp across the infundibulum and the catheter needle was inserted into the gallbladder. Under fluoroscopy contrast was instilled into the gallbladder and the common duct, cystic duct as well as proximal hepatic ducts were identified. There was good filling of the duodenum. There were no filling defects noted in the common bile duct. The clamp was removed as well as the needle and the infundibulum was grasped once more. Three hemolock clips were placed across the cystic duct. The cystic duct was then divided leaving 2 clips on the stump. The cystic artery was clipped and divided in the same fashion. The hook cautery was then used to take the gallbladder off of the gallbladder bed. Hemostasis was obtained. Gallbladder fossa was irrigated and no active bleeding or bile leakage was noted. Next the camera was introduced in the subxiphoid port. An Endopouch bag was placed through the umbilical port and the gallbladder was placed into it. The gallbladder was then removed through the umbilical incision. The camera was then reinserted through the umbilical port. The gallbladder fossa was inspected once more and noted to be hemostatic with no leaking bile. The abdomen was suctioned dry. The 5 mm ports were removed under direct visualization. The umbilical port was then removed and the air was removed from the abdomen. Next using an 0 Vicryl suture the umbilical fascia was closed in a [id number] fashion. The umbilical port site was irrigated local anesthetic was administered to all the incisions. All the incisions were closed with interrupted subcuticular 4-0 Monocryl sutures followed by Steri-Strips and dressings. The patient was awoken and taken to PACU in stable condition. Admit VTE Documentation VTE Mechan Device Prophylaxis: SCD's
[2023-06-05] MEDS: oxyCODONE 5 MG Tablet PO (18:10)
[2023-06-05] MEDS: 0.9% Normal Saline 1,000 ML 60 ML IV (21:52)
[2023-06-06] MEDS: 0.9% Normal Saline 1,000 ML 60 ML IV (03:42)
[2023-06-06 03:43] VITALS: BP 129/56; PULSE 60; RESP 18; TEMP 36.8; O2SAT 95
[2023-06-06 06:45] LABS: Absolute Lymphocyte Count 1.61 X10^3/uL (0.83-4.51); Basophil# 0.02 X10^3/uL; Basophil% 0.2 % (0-1); Hematocrit 42.6 % (40-54); Hemoglobin 14.3 g/dL (13.0-16.5); Lymphocyte # 1.61 X10^3/ul (0.83-4.51); Lymphocyte % 13.9 % (19-41); Mean Corp Hgb Conc 33.6 g/dL (32-36); Mean Corpuscular Hgb 31.9 pg (27.0-32.0); Mean Corpuscular Volume 95.1 fL (80-94); Mean Platelet Vol. 9.5 fl (6.2-12.0); Monocyte# 0.89 X10^3/uL; Monocyte% 7.7 % (0-10); NRBC Flagged by Analyzer 0 % (0-5); Neutrophil # 8.99 X10^3/uL (2.7-7.7); Neutrophil % 77.6 % (47-70); Platelet Count 243 K/mm3 (150-450); RBC Distribution Width CV 12.8 % (11.6-14.6); Red Blood Count 4.48 M/mm3 (4.6-6.2); White Blood Count 11.6 K/mm3 (4.4-11.0)
[2023-06-06 07:18] LABS: Anion Gap 5 (5-15); BUN 13 mg/dL (7-18); BUN/Creat Ratio 13.6 RATIO (10-20); Chloride 109 mmol/L (98-107); Creatinine, Serum 0.95 mg/dL (0.70-1.30); EST Glomerular Filtration Rate 81 mL/min (>60); Est Glom Filt Rate - Afr Amer 98 mL/min (>60); Estimated Creatinine Clearance 65.12 ml/min; Glucose 131 mg/dL (74-106); Potassium 4.1 mmol/L (3.5-5.1); Sodium Level 137 mmol/L (136-145)
--- NOTE | 2023-06-06 08:12 | PCM.DC.SUM ---
Providers Date of Admission: 06/05/23 Primary Care Physician: Dr. Cecile Rhodes MD Reason For Visit: ACUTE CHOLECYSTITIS Diagnosis Discharge Diagnosis (1) Acute cholecystitis: Status: Acute Code(s): K81.0 - Acute cholecystitis Plan: The patient presents with epigastric and right upper quadrant pain which started suddenly in the middle the night. ultrasound did reveal several gravel-like stones and sludge in the gallbladder. Patient reports that his pain did improve with the pain medication. He denies fevers or chills. I recommended laparoscopic cholecystectomy to the patient. I discussed the procedure in detail with the patient. I discussed the risks, benefits, and alternatives of the procedure. I discussed the risks including but not limited to bleeding, infection, injury to surrounding organs such as the liver, bile duct, bowels. I did discuss the possibility of having to convert to an open procedure as well as the possibility that if any injuries occurred this may necessitate further surgery at a tertiary care center. Jose Duran MD Pager: [facility] [address] [place] [address], [address] [place] [address] Office: Medications at Discharge Home Medications amlodipine 5 mg tablet 5 mg PO DAILY 03/15/18 amphetamine 1.25 mg/mL oral 24 hr extended-release suspension 3.1 mg PO QAM 08/23/20 ramipril 10 mg capsule 10 mg PO DAILY 09/01/20 omeprazole 20 mg capsule,delayed release 40 mg PO DAILY 09/06/21 polyethylene glycol 3350 17 gram/dose oral powder (Miralax) 17 g PO DAILY 09/06/21 tadalafil 5 mg tablet ea PO 09/06/21 hydrocodone-acetaminophen 5-325mg 5mg-325mg 1 tab PO Q6H PRN PRN Pain 3 days #12 TABLETS 06/05/23 ondansetron 4 mg disintegrating tablet 4 mg PO TID PRN nausea and vomiting #21 tabs 06/05/23 acetaminophen 325 mg tablet 650 mg (2 x 325 mg) PO Q4H PRN PRN Pain 1-10 Or Fever #0 tabs 06/06/23 Hospital Course Operations cholecystecomy Summary of Care Provided Hospital Course: Patient was admitted with acute cholecystitis. The later that afternoon he was taken for laparoscopic cholecystectomy. He tolerated the procedure well. The following morning he was tolerating a diet and his pain was well controlled and he was discharged home. Physical Exam Const oriented x3 Resp normal respiratory effort Cardio regular rate and regular rhythm GI soft to palpation and non-tender Weight / BMI Weight Weight: 178 lb Body Mass Index (BMI) 26.2 ABG / Lab / Microbiology Data 06/06/23 06:20 06/06/23 06:20 Laboratory: Laboratory Results - last 24 hr 06/06/23 06:20: WBC 11.6 H, RBC 4.48 L, Hgb 14.3, Hct 42.6, MCV 95.1 H, MCH 31.9, MCHC 33.6, RDW Std Deviation 45.0 H, RDW Coeff of Cass 12.8, Plt Count 243, MPV 9.5, Immature Gran % (Auto) 0.600, Neut % (Auto) 77.6 H, Lymph % (Auto) 13.9 L, Hall % (Auto) 7.7, Eos % (Auto) 0.0, Baso % (Auto) 0.2, Absolute Neuts (auto) 9.0 H, Absolute Lymphs (auto) 1.61, Nucleated RBC % 0, Sodium 137, Potassium 4.1, Chloride 109 H, Carbon Dioxide 23.0, Anion Gap 5, BUN 13, Creatinine 0.95, Estim Creat Clear Calc 65.12, Est GFR (MDRD) Af Amer 98, Est GFR (MDRD) Non-Af 81, BUN/Creatinine Ratio 13.6, Glucose 131 H, Calcium 8.0 L Radiography Diagnostic Testing: Radiology Impression Gallbladder Ultrasound 06/05/23 06:33 IMPRESSION: Cholelithiasis. Electronically Signed: Howie Sahni MD at 8:14 EDT , Cholangiogram 06/05/23 14:19 IMPRESSION: Unremarkable intraoperative cholangiogram. Electronically Signed: Quintin Ramirez MD at 15:50 EDT , D/C Instructions Discharge Diet: Light diet - advance as tolerated Discharge Activity: May Not Drive (for 2-3 days or while taking narcotic pain medications.), May Shower and - (Do not drive, work heavy equipment or sign legal documents for 24 hours.) Lifting Restrictions: 20 lbs for 2 weeks Additional Activity Instructions: Pain medication may cause nausea. You should typically eat light foods as you take your pain medications. Pain medication may also cause constipation. If this is a problem for you, please discuss with your doctor. Call your doctor if your incision/area has: Continuous Slow Oozing, Sudden Increased Bleeding, Increased Pain/ Swelling, Increased Redness and Foul Smelling Discharge Call your doctor if you observe: Fever of 101 or Higher Suture Line Care: Avoid Pulling/Pushing and Avoid Pinching/Bending Remove Dressing in: 2 days Additional Dressing/Incision Instructions: Leave operative bandaids on for 2 days. When you remove dressing, leave Steri-Strips on until your follow-up appointment, or until the Steri-Strips fall off on their own. Please Follow Up With: Jose Duran MD When: Please call to schedule 2 week follow up appointment. [phone] Meaningful Use Info Meaningful Use Diagnoses (Choose all that apply): None applicable Discharge Plan Admission Admit Date/Time: 06/05/23 09:02 Attending Provider: Jose Duran Primary Care Provider: Cecile Rhodes Discharge Orders/Prescriptions Prescriptions: New hydrocodone-acetaminophen 5-325 mg tablet 1 tab PO Q6H PRN PRN (Reason: Pain) 3 Days Qty: 12 0RF ondansetron 4 mg tablet,disintegrating 4 mg PO TID PRN (Reason: nausea and vomiting) Qty: 21 0RF acetaminophen 325 mg Tablet 650 mg PO Q4H PRN PRN (Reason: Pain 1-10 Or Fever) Qty: 0 0RF Continued amphetamine 1.25 mg/mL suspen, IR - ER, biphasic 24hr 3.1 mg PO QAM ramipril 10 mg capsule 10 mg PO DAILY polyethylene glycol 3350 [Miralax] 17 gram/dose powder 17 g PO DAILY omeprazole 20 mg capsule,delayed release(DR/EC) 40 mg PO DAILY Patient Comments: TAKE 1 CAPSULE BY MOUTH ONCE DAILY 30 MINUTES BEFORE BREAKFAST tadalafil 5 mg tablet PO Patient Comments: TAKE 1 TABLET BY MOUTH DAILY amlodipine 5 MG tablet 5 mg PO DAILY Referrals / Follow Up: Jose Duran MD [Med Staff - Active Staff] - Cecile Rhodes MD [Primary Care Provider] - Disposition Disposition (needs filled in before D/C Order can be placed): Home, Self Care
[2023-06-06 09:48] VITALS: BP 137/65; PULSE 73; RESP 16; TEMP 36.7; O2SAT 97
[2023-06-06] MEDS: Pantoprazole Sodium 40 MG Tablet PO (09:53)
--- NOTE | 2023-06-06 10:19 | PHA.DC.MC.R ---
Pharmacy [facility] has performed discharge medication reconciliation and counseling for this patient. The patient was counseled on the following discharge medications and changes in medications for homegoing were reviewed. 1. NORCO 2. TYLENOL 3. ZOFRAN The Reason for Use, instructions for use, and potential side effects were reviewed for all new medications. The patient's questions regarding all of their medications were answered. The patient was able to verbally demonstrate an understanding of their discharge medications. Patient counselled by Tadeo Collier PharmD candidate The patient's discharge medication list was reviewed for discrepancies and discrepancies were resolved. Medications at Discharge Home Medications amlodipine 5 mg tablet 5 mg PO DAILY 03/15/18 amphetamine 1.25 mg/mL oral 24 hr extended-release suspension 3.1 mg PO QAM 08/23/20 ramipril 10 mg capsule 10 mg PO DAILY 09/01/20 omeprazole 20 mg capsule,delayed release 40 mg PO DAILY 09/06/21 polyethylene glycol 3350 17 gram/dose oral powder (Miralax) 17 g PO DAILY 09/06/21 tadalafil 5 mg tablet ea PO 09/06/21 hydrocodone-acetaminophen 5-325mg 5mg-325mg 1 tab PO Q6H PRN PRN Pain 3 days #12 TABLETS 06/05/23 ondansetron 4 mg disintegrating tablet 4 mg PO TID PRN nausea and vomiting #21 tabs 06/05/23 acetaminophen 325 mg tablet 650 mg (2 x 325 mg) PO Q4H PRN PRN Pain 1-10 Or Fever #0 tabs 06/06/23
--- NOTE | 2023-06-06 10:46 | CASEMGMT ---
Patient has order for discharge. RN CM in to discuss needs at discharge. Patient denies needs at this time. Patient had no furhter questions or concerns at this time.
== END 2023-06-06 08:15 | disposition home or self-care (01) ==
LOC: ED 08:48 → PCU 09:45
PROVIDERS: Admitting Provider Surgery; Emergency Provider Emergency Medicine; PCP Internal Medicine; Visit Provider Surgery
PROC: (CPT 47610; principal; 2023-06-05 14:00)
DX: K80.12 Calculus of gallbladder with acute and chronic cholecystitis without obstruction (principal); Z87.891 Personal history of nicotine dependence; I10 Essential (primary) hypertension; Z79.899 Other long term (current) drug therapy; Z86.16 Personal history of COVID-19; K21.9 Gastro-esophageal reflux disease without esophagitis
CPT/HCPCS: 47563; 00790; 36415; 74177; 74300; 76000; 76705; 80048; 80076; 83605; 83690; 84484; 85025; 88304; 93005; 94668; 96365; 96368; 96375; 96376; 99221; 99252; 99284; J7030; Q9967; A4216; G0378; G0463; J0744; J2405